=== PATIENT | male | born 1980 | race Caucasian/White ===

== ENCOUNTER 2017-01-14 23:25 | Emergency (ER) | payer OTHER ==
[2017-01-15 00:16] LABS: BILIRUBIN NEGATIVE (NEGATIVE); BLOOD NEGATIVE Ery/uL (NEGATIVE); CLARITY CLEAR (CLEAR); COLOR YELLOW (YELLOW); GLUCOSE (U) NORMAL (NORMAL); KETONE (U) NEGATIVE (NEGATIVE); LEUKOCYTES NEGATIVE Leu/uL (NEGATIVE); NITRITE NEGATIVE (NEGATIVE); PROTEIN NEGATIVE (NEGATIVE); SPECIFIC GRAVITY 1.025 (1.001-1.030); UROBILINOGEN 0.2 mg/dL (0.2-1.0); pH 5.5 (5.0-9.0)
[2017-01-15 00:27] LABS: BASOPHIL 0.3 % (0-2); EOSINOPHIL 1.8 % (0-5); HCT 41.6 % (42.0-52.0); HGB 14.3 g/dl (13.2-18.0); LYMPHOCYTE 33.2 % (15-48); MCHC 34.4 g/dL (32.0-36.0); MONOCYTE 12.2 % (0-12); MPV 10.3 fL (6.0-9.5); NEUTROPHIL 52.5 % (41-80); PLT 177 K/uL (150-400); RBC 4.62 M/uL (4.70-6.00); RDW 13.9 % (11.5-14.0); WBC 10.6 K/uL (4.0-10.5)
[2017-01-15 00:42] LABS: CREATININE 1.3 mg/dL (0.7-1.2); POTASSIUM 3.9 mmol/L (3.5-5.1)
== END 2017-01-15 01:25 | disposition home or self-care (01) ==
LOC: FER 23:25
PROVIDERS: Emergency Medicine
DX: N28.9 Disorder of kidney and ureter, unspecified (principal); R10.9 Unspecified abdominal pain; R19.7 Diarrhea, unspecified; F17.210 Nicotine dependence, cigarettes, uncomplicated
CPT/HCPCS: 36415; 80048; 81003; 85025; 87088; 99284

== ENCOUNTER 2021-11-22 13:17 | Emergency (ER) | payer OTHER | END 2021-11-22 18:40 | disposition other institution (70) | LOC: FER 13:17 | DX: S42.352A Displaced comminuted fracture of shaft of humerus, left arm, initial encounter for closed fracture (principal); S01.112A Laceration without foreign body of left eyelid and periocular area, initial encounter; S01.01XA Laceration without foreign body of scalp, initial encounter; V29.60XA Unspecified motorcycle rider injured in collision with unspecified motor vehicles in traffic accident, initial encounter | CPT/HCPCS: 70450; 71045; 72125; 73030; 73060; 73090; 73130; 96374; 96375; 96376; J1170; J2270; J2405 ==